=== PATIENT | female | born 1950 | race Two or more races ===

== ENCOUNTER 2024-10-22 15:27 | Emergency (ER) | payer MEDICARE, OTHER, SELFPAY ==
[2024-10-22 16:04] VITALS: BP 173/65; PULSE 64; RESP 18; TEMP 36.9; O2SAT 98
[2024-10-22 16:08] VITALS: PULSE 81; RESP 18; O2SAT 99; BMI 32.9
--- NOTE | 2024-10-22 16:16 | PD.EDFALL ---
ED Fall Injury RME/HPI General Chief Complaint: Fall Stated Complaint: FALL Time Seen by Provider: 10/22/24 16:34 Arrival date/time: 10/22/24 15:27 RME / HPI RME / HPI Narrative: DR. MUNSON MAIN ED EVALUATION: 73 year old female presents to the Emergency Department [facility] with complaint of bilateral knee pain, but left knee pain is worse, secondary to fall last night. Patient states she was walking from her truck to her home taking in the groceries and she slipped and fell on her knees. No feet pain and no hip pain. Related Data Home Medications ?Medication ?Instructions ?Recorded ?Confirmed ergocalciferol (vitamin D2) 1,250 1,250 mcg PO QWEEK 06/29/22 06/29/22 mcg (50,000 unit) capsule (Vitamin D2) metoprolol succinate 50 mg 50 mg PO BID 06/29/22 06/29/22 tablet,extended release 24 hr sertraline 100 mg tablet 100 mg PO HS 06/29/22 06/29/22 Previous Rx's ?Medication ?Instructions ?Recorded ibuprofen 600 mg tablet 600 mg PO TID PRN pain #30 tabs 06/29/22 ibuprofen 600 mg tablet 600 mg PO Q6H PRN pain #30 tabs 10/22/24 Allergies Allergy/AdvReac Type Severity Reaction Status Date / Time No Known Allergies Allergy Verified 02/18/24 19:43 Review of Systems Review of Systems Systems Reviewed: All systems reviewed, normal except as documented Narrative Review of Systems: GEN: No fever, no chills, no weight loss EYES: No discharge, no visual changes, no pain HEENT: No ear pain, no congestion, no sore throat PULM: No shortness of breath, no cough, no congestion CV: No chest pain, no dyspnea on exertion, no palpitations GI: No nausea, no vomiting, no diarrhea, no pain, no constipation : No frequency, no urgency and no dysuria MUSC/SKEL: + bilateral knee pain, but left knee pain is worse; no back pain SKIN: No rash PSYCH: No hallucinations, no depression HEME/LYMPH: No easy bleeding or bruising tendencies NEURO: No weakness, no headache Past Medical History Past Medical History CARDIAC: Positive Hypertension MUSCULOSKELETAL: Positive Arthritis PSYCHO/SOCIAL: Positive Depression and Anxiety Surgical History SURGICAL: Positive Hysterectomy Social History SMOKING STATUS: Never smoker SUBSTANCE USE: does not use ALCOHOL: Never ED Exam Narrative Physical exam: GENERAL APPEARANCE: alert and oriented x 4, well-developed, well-nourished VITALS: All vitals were reviewed and the pulse ox is 98% on room air, which is normal according to my interpretation. HEENT: Normocephalic, atraumatic; pupils equal, round, reactive to light; EOMI; mucous membranes pink, moist; oropharynx clear NECK: Supple LUNGS: CTABL; no wheezes, no rales, no rhonchi HEART: Regular rate, regular rhythm; normal S1, S2; no murmurs ABDOMEN: non distended; normal BS; soft, no tenderness, no guarding, no rebound; no masses, no organomegaly, no hernia BACK: no CVA tenderness EXTREMITIES: joint effusion of the left knee, but no erythema, some mild edema, no increased warmness NEUROLOGIC: awake; alert and oriented x4; cranial nerves II-XII grossly intact; no focal sensory or motor deficits PSYCHIATRIC: appropriate mood and affect SKIN: warm, dry, normal color; no rashes Course Quality Measures none Orders Category Date Time Status XR knee comp LT 4V Stat Exams 10/22/24 16:33 Completed HYDROcodone*/APAP 5/325 [[place] 5/325] Med 10/22/24 16:33 Discontinued 1 tab PO X1 ONE Vital Signs Vital signs: Vital Signs Temperature 98.5 F 10/22/24 16:04 Pulse Rate 64 10/22/24 16:04 Respiratory Rate 18 10/22/24 16:04 Blood Pressure 173/65 H 10/22/24 16:04 Pulse Oximetry (%) 98 10/22/24 16:04 Oxygen Delivery Method Room Air 10/22/24 16:04 Fall [facility] Narrative [facility] Narrative:: IDarshana am scribing for and in the presence of Dr. Munson. Patient data External records reviewed:: [facility] previous records (Reviewed last ED visit dated 02/18/24, discharged with the following: Injection site reaction) Clinical information provided by:: patient Social determinants that could affect healthcare access:: none Patient has the following chronic illnesses:: Hypertension, arthritis, and a hysterectomy How is presenting disease/condition affected by chronic disease/condition?: exacerbated by Evaluation data The following diagnostics were reviewed and interpreted by me:: radiology exam(s) Lab and/or radiology exams considered but not ordered:: none Interpretation Summary: Procedure(s): XR knee comp LT 4V Accession Number(s): [id number] cc: Felipe Salas MD; Yisel Munson MD~ EXAMINATION: XR knee comp LT 4V ORDERING PROVIDER: Yisel Munson MD HISTORY: fall TECHNIQUE: 4 radiographs of the knee were obtained. COMPARISON: 04/23/2022, left knee radiographs. FINDINGS: No acute fracture or dislocation. Moderate medial compartment, mild patellofemoral compartment degenerative changes. Chondrocalcinosis. No soft tissue swelling. Trace effusion. Osteopenia. IMPRESSION: Trace effusion without acute bony findings. Dictated By: Felipe Salas MD Medications / Prescriptions Medications or Prescriptions considered but not ordered:: none Medication administrations:: Medication Administration History Discontinued Medications Hydrocodone Bitart/Acetaminophen (Hydrocodone/Apap 5/325 Tablet) 1 tab PO X1 ONE Stop: 10/22/24 16:34 see above Consultations Consultation(s) initiated? (list below): No Diagnosis Fall Differential Diagnosis: other (Fall, Knee pain, knee fracture, knee contusion) Most likely diagnosis given after review of the tests above:: Fall Knee pain Joint effusion of knee Contusion of knee Admission Indicated Admission indicated?: not indicated Admission Request Was there a request for admission?: No Disposition Plan Disposition Plan: Discharge Discharge Attestation Discharge Attestation: The patient and all family members were given an opportunity to ask questions and understood the discharge instructions. Discharge instructions specifically effects, indications for sooner follow up or return to the emergency department, and the expected course of current diagnosis. Patient condition: Stable Discharge Plan Plan Patient Disposition: HOME (Self Care) Patient condition on transfer: Stable Prescriptions/Referrals Prescriptions/Med Rec: New ibuprofen 600 mg tablet 600 mg PO Q6H PRN (Reason: pain) Qty: 30 0RF No Action metoprolol succinate 50 mg Tablet Extended Release 24 Hr 50 mg PO BID sertraline 100 mg Tablet 100 mg PO HS ergocalciferol (vitamin D2) [Vitamin D2] 1,250 mcg (50,000 unit) Capsule 1,250 mcg PO QWEEK ibuprofen 600 mg tablet 600 mg PO TID PRN (Reason: pain) Qty: 30 0RF Referrals: Low Cabello MD [Primary Care Provider] - In 1 week Problem List Clinical Impression: Fall, Knee pain, Joint effusion of knee, Contusion of knee Patient/Caregiver Discharge Instructions Education Materials: CHRISTOPHE, ED ANA Wrap, ED Knee Effusion Print Language: Divehi Stand Alone Forms: Anai Award Info., Patient Portal Info Letter
--- NOTE | 2024-10-22 16:33 | XR_ITS ---
EXAMINATION: XR knee comp LT 4V ORDERING PROVIDER: Yisel Munson MD HISTORY: fall TECHNIQUE: 4 radiographs of the knee were obtained. COMPARISON: 04/23/2022, left knee radiographs. FINDINGS: No acute fracture or dislocation. Moderate medial compartment, mild patellofemoral compartment degenerative changes. Chondrocalcinosis. No soft tissue swelling. Trace effusion. Osteopenia. IMPRESSION: Trace effusion without acute bony findings.
[2024-10-22] MEDS: HYDROcodone/APAP 5/325 TABLET 1 TAB PO (17:58)
[2024-10-22 17:59] VITALS: BP 157/100; PULSE 85; RESP 18; TEMP 36.6; O2SAT 97
== END 2024-10-22 19:27 | disposition home or self-care (01) ==
PROVIDERS: Emergency Provider Emergency Medicine; PCP Internal Medicine
DX: S80.02XA Contusion of left knee, initial encounter (principal); W01.0XXA Fall on same level from slipping, tripping and stumbling without subsequent striking against object, initial encounter; Y93.01 Activity, walking, marching and hiking
CPT/HCPCS: 73564; 99283; A9270

== ENCOUNTER → 2024-11-26 | Outpatient (CLI) | payer MEDICARE, OTHER, SELFPAY ==
--- NOTE | 2024-11-26 12:30 | XR_ITS ---
Exam: MRI knee without contrast, left Date and time of exam: November 26, 2024 at 1111 hours INDICATIONS: Patient fell one month ago with injury to the knee, knee pain Technique: Multiple axial, coronal, and sagittal sections on the knee have been obtained. T2-Weighted sagittal, fat-suppressed images, TR 3,500, TE 62, T2 weighted coronal fat-saturated images, TR 3,500, TE 62 Proton density sagittal sections, TR 1800, TE 31. T-1 weighted coronal images, TR 524, TE 13.0 Findings: Medial meniscus anterior horn intact. Medial meniscus, body abnormal, small vertical tears. Posterior horn medial meniscus abnormal, large horizontal linear tear. Lateral meniscus anterior horn horizontal linear tear Lateral meniscus, body is intact Posterior horn lateral meniscus is intact Anterior cruciate ligament mild sprain Posterior cruciate ligament appears intact. Knee effusion is small. Quadriceps and patellar tendons appear intact. There is no evidence of tendinosis. Inflammatory change or fracture of Hoffa's fat pad is not seen. Medial patellar facet demonstrates severe thinning. Lateral patellar facet cartilage demonstrates severe thinning. Trochlear cartilage demonstrates severe thinning. Marrow signal abnormal, extensive marrow edema with comminuted fractures lateral tibial plateau with depression of the lateral tibial plateau at least 8 mm. Medial collateral ligament appears intact. No meniscocapsular separation is seen. Illiotibial band and fibular collateral ligament are intact. Biceps femoris tendons appear intact. Medial femoral condylar articular cartilage demonstrates severe thinning. Lateral femoral condylar articular cartilage demonstratessevere thinning. Tibial plateau cartilage demonstrates severe thinning. Impression: Acute comminuted fractures lateral tibial plateau with depression lateral tibial plateau Medial lateral meniscus tears Mild sprain anterior cruciate ligament
== END | disposition home or self-care (01) ==
LOC: SMRI 11:21
PROVIDERS: PCP Internal Medicine; Referring Provider Internal Medicine; Visit Provider Internal Medicine
DX: S82.142A Displaced bicondylar fracture of left tibia, initial encounter for closed fracture (principal); S83.282A Other tear of lateral meniscus, current injury, left knee, initial encounter; S83.512A Sprain of anterior cruciate ligament of left knee, initial encounter; W19.XXXA Unspecified fall, initial encounter
CPT/HCPCS: 73721

== ENCOUNTER 2025-01-07 08:26 | Outpatient (AMB) | payer MEDICARE, OTHER, SELFPAY ==
[2025-01-07 08:36] VITALS: BP 187/72; PULSE 60; RESP 18; TEMP 36.6; O2SAT 94; BMI 32.1
--- NOTE | 2025-01-07 08:36 | ORTHONT_ITS ---
Vital signs 01/07/25 08:36 Height 1.57 m Height Method Stated Weight 79.634 kg Weight Measurement Method Standing Scale BMI 32.1 BP 187/72 H Blood Pressure Source Automatic Cuff Blood Pressure Location Right Upper Arm Position Sitting Respiration 18 Pulse 60 Pulse Source Monitor Temp 97.8 F Temp Source Temporal Artery Scan Pulse Oximetry (%) 94 L Oxygen Delivery Method Room Air Med/Allergies Allergies & Medications Allergies No Known Allergies Allergy (Verified 01/07/25 08:39) Medication Reconciliation ibuprofen 600 mg tablet 600 mg PO TID PRN pain #30 tabs 06/29/22 [Rx Confirmed 01/07/25] metoprolol succinate 50 mg tablet,extended release 24 hr 50 mg PO BID 06/29/22 [History Confirmed 01/07/25] sertraline 100 mg tablet 100 mg PO HS 06/29/22 [History Confirmed 01/07/25] ibuprofen 600 mg tablet 600 mg PO Q6H PRN pain #30 tabs 10/22/24 [Rx Confirmed 01/07/25] Exam Exam Patient is in no acute distress and is cooperative with the examination today. Breathing is nonlabored. Patient has a normal mood and affect. The patient has a gait that is nonantalgic Bilateral extremities were evaluated and demonstrates sensation intact to light touch. Palpable pedal pulses are present. No significant edema is present. Bilateral hips were examined. The patient has no pain with log roll of the hips. Internal rotation to 30 degrees and external rotation to 30 degrees is painless. Negative FADIR. Right knee was examined today. The right knee is in reasonable alignment. Range of motion from 0-120 degrees. Knee is stable to varus and valgus as well as AP translation with <5mm. Patient has a negative McMurrays. There is no pain with patellofemoral compression and no crepitus noted. The knee is nontender to palpation. Left knee was examined today. The left knee is in neutral alignment. Range of motion from 0-120 degrees. Knee is stable to varus and valgus as well as AP translation with <5mm. Patient has a negative McMurrays. There is no pain with patellofemoral compression and no crepitus noted. The knee is nontender to palpation diffusely. Assessment and Plan Problem List (1) Closed nondisplaced fracture of left tibial plateau: Status: Acute Plan: Patient is a 74-year-old female with a nondisplaced tibial plateau fracture. It is likely healed at this point as she has no pain. I would like to get weightbearing x-rays to see what it looks like now. Is been over 2-1/2 months. She also has left wrist pain and had a recent fall 1 week ago. I would like to get x-rays to better evaluate the wrist We will see her in approximately 1 to 2 weeks (2) Left wrist pain: Status: Acute Advanced Care Planning Discussion Advance care planning discussed with:: patient Office Procedures GNS Level of Care Nursing/Assessment Patient Status: Established Patient Nursing Assessment/Reassesment: Medication Reconciliation, Update PMH in EMR and Vital Signs Coordination of Care: Complex Care and Chronic Disease 1-5, Education Complex Pt/Fam, Consent,records obtained, informed consent, Lab and Imaging orders, Results/Orders obtained and Staff clarify orders Established Patient Charge Established Patient Point Assignment: 110 Established Patient Point Charge: EP Level 3 (80-115) MA Intake Visit Data Collection New Patient or Established: Established Patient (seen at [facility] within 3 years) Reason for Visit:: LEFT KNEE PAIN Seen by Clinical Staff ONLY (RN/MA): No Verbal consent obtained for Telemed visit?: No Metallurgical Lab Technician Required: No PCP or OBGYN visit in last 3 months: Yes Hx Now: No Do You Feel Safe at Home: Yes Authorities Contacted: N/A Questionairres Past Medical History Past Medical History Have you ever been diagnosed with any of the following: Cardiology Problems Congestive Heart Failure: No Hypertension: Yes Respiratory Problems Chronic Obstructive Pulmonary Disease (COPD): No Genital/Urinary Problems Renal Disease: No Musculoskeletal Problems Arthritis: Yes Endocrine Problems Diabetes Mellitus Type 1: No Diabetes Mellitus Type 2: No Psychologic Problems Depression: Yes Anxiety: Yes Surgical History Hysterectomy: Yes Subjective Visit Visit for: new patient and knee Immunization / Flu Flu Vaccine in the Last 12 Months: No Flu Vaccine Exclusion Criteria: Refused by Patient History of Present Illness Chief complaint: LEFT KNEE PAIN Date of injury / onset of symptoms: FELL ON NOVEMBER Sara is a pleasant 74-year-old female with a left knee pain. She had a fall in October and was found to have a nondisplaced tibial plateau fracture which was confirmed on MRI. The original x-rays did not show anything. She reports the pain has significantly gotten better. She is able to weight-bear. Personal History Occupation: RETIRED Red flag PMH: BMI BMI Counceling provided: Yes Pain Pain level (0-10): 7 Pain location: anterior Pain quality: sharp, dull and aching Pain timing: increases with activity Associated signs & symptoms: none Ambulatory data Ambulatory device: none Treatments Improvement with previous injections: No Improvement with PT: No Improvement with NSAIDS: yes (IBUPROFEN) Review of Systems Review of Systems: All systems negative unless otherwise noted in HPI.
--- NOTE | 2025-01-07 08:57 | XR_ITS ---
Examination: Bilateral AP knees single view PA lateral axial left knee 3 views TECHNIQUE: Bilateral AP knees standing single view PA standing left knee, lateral standing left knee, axial left knee 3 views total 4 views Date and time: January 07, 2025 0922 hours Comparison October 22, 2024 INDICATIONS: Left knee pain after falling 2 months ago. FINDINGS: Moderate osteopenia Moderate narrowing medial joint space left knee Mild to moderate osteoarthritis patellofemoral joint left knee No fracture involving right or left knee Moderate osteopenia Mild narrowing medial joint space right knee IMPRESSION: No fractures Moderate narrowing medial joint space left knee Mild to moderate osteoarthritis patellofemoral joint left knee
== END 2025-01-07 09:00 | disposition home or self-care (01) ==
LOC: HODSRG 08:26
PROVIDERS: PCP Internal Medicine; Referring Provider Internal Medicine; Supervising Provider Orthopaedic Surgery Adult Reconstructive Orthopaedic Surgery; Visit Provider Orthopaedic Surgery Adult Reconstructive Orthopaedic Surgery
DX: S82.142A Displaced bicondylar fracture of left tibia, initial encounter for closed fracture (principal); X58.XXXA Exposure to other specified factors, initial encounter
CPT/HCPCS: 73564; 99213; G0463

== ENCOUNTER 2025-01-19 14:19 | Outpatient (AMB) | payer MEDICARE, OTHER, SELFPAY ==
[2025-01-19 14:37] VITALS: BP 158/62; PULSE 63; RESP 17; TEMP 36.2; O2SAT 95; BMI 31.8
--- NOTE | 2025-01-19 14:37 | PD.ORTHCLVIS ---
Vital signs 01/19/25 14:37 Height 1.57 m Height Method Stated Weight 79.038 kg Weight Measurement Method Standing Scale BMI 31.8 BP 158/62 H Blood Pressure Source Automatic Cuff Blood Pressure Location Right Upper Arm Position Sitting Respiration 17 Pulse 63 Pulse Source Monitor Temp 97.1 F Temp Source Temporal Artery Scan Pulse Oximetry (%) 95 Oxygen Delivery Method Room Air Med/Allergies Allergies & Medications Allergies No Known Allergies Allergy (Verified 01/19/25 14:39) Medication Reconciliation ibuprofen 600 mg tablet 600 mg PO TID PRN pain #30 tabs 06/29/22 [Rx Confirmed 01/19/25] metoprolol succinate 50 mg tablet,extended release 24 hr 50 mg PO BID 06/29/22 [History Confirmed 01/19/25] sertraline 100 mg tablet 100 mg PO HS 06/29/22 [History Confirmed 01/19/25] ibuprofen 600 mg tablet 600 mg PO Q6H PRN pain #30 tabs 10/22/24 [Rx Confirmed 01/19/25] Exam Exam Patient is in no acute distress and is cooperative with the examination today. Breathing is nonlabored. Patient has a normal mood and affect. The patient has a gait that is nonantalgic Bilateral extremities were evaluated and demonstrates sensation intact to light touch. Palpable pedal pulses are present. No significant edema is present. Bilateral hips were examined. The patient has no pain with log roll of the hips. Internal rotation to 30 degrees and external rotation to 30 degrees is painless. Negative FADIR. Right knee was examined today. The right knee is in reasonable alignment. Range of motion from 0-120 degrees. Knee is stable to varus and valgus as well as AP translation with <5mm. Patient has a negative McMurrays. There is no pain with patellofemoral compression and no crepitus noted. The knee is nontender to palpation. Left knee was examined today. The left knee is in neutral alignment. Range of motion from 0-120 degrees. Knee is stable to varus and valgus as well as AP translation with <5mm. Patient has a negative McMurrays. There is no pain with patellofemoral compression and no crepitus noted. The knee is nontender to palpation diffusely. Xrays demosntrate no significant oa or depression of the tibial plateau fracture. It looks well healed Assessment and Plan Problem List (1) Closed nondisplaced fracture of left tibial plateau: Status: Acute Plan: Patient is a 74-year-old female with a nondisplaced tibial plateau fracture. It is likely healed at this point as she has no pain. I would like to get weightbearing x-rays to see what it looks like now. It has been 3 months. She also has left wrist pain and had a recent fall 1 week ago. I would like to get x-rays to better evaluate the wrist but it was denied She is doing well and will need xrays and followup (2) Left wrist pain: Status: Acute Advanced Care Planning Discussion Advance care planning discussed with:: patient Office Procedures GNS Level of Care Nursing/Assessment Patient Status: Established Patient Nursing Assessment/Reassesment: Medication Reconciliation, Update PMH in EMR and Vital Signs Coordination of Care: Complex Care and Chronic Disease 1-5, Education Complex Pt/Fam, Consent,records obtained, informed consent, Results/Orders obtained and Staff clarify orders Established Patient Charge Established Patient Point Assignment: 95 Established Patient Point Charge: EP Level 3 (80-115) MA Intake Visit Data Collection New Patient or Established: Established Patient (seen at [facility] within 3 years) Reason for Visit:: FU XRAY RESULT LT KNEE/HAND Seen by Clinical Staff ONLY (RN/MA): No Swiss Type Screw Machine Operator Required: No PCP or OBGYN visit in last 3 months: Yes Hx Now: No Do You Feel Safe at Home: Yes Authorities Contacted: N/A Questionairres Past Medical History Past Medical History Have you ever been diagnosed with any of the following: Cardiology Problems Congestive Heart Failure: No Hypertension: Yes Respiratory Problems Chronic Obstructive Pulmonary Disease (COPD): No Genital/Urinary Problems Renal Disease: No Musculoskeletal Problems Arthritis: Yes Endocrine Problems Diabetes Mellitus Type 1: No Diabetes Mellitus Type 2: No Psychologic Problems Depression: Yes Anxiety: Yes Surgical History Hysterectomy: Yes Subjective Visit Visit for: follow up visit and knee (LEFT KNEE) Immunization / Flu Flu Vaccine in the Last 12 Months: No Flu Vaccine Exclusion Criteria: Refused by Patient History of Present Illness Chief complaint: LEFT KNEE PAIN Date of injury / onset of symptoms: FELL ON NOVEMBER Sara is a pleasant 74-year-old female with a left knee pain. She had a fall in October and was found to have a nondisplaced tibial plateau fracture which was confirmed on MRI. She reports she has no pain at this time. Personal History Occupation: RETIRED Red flag PMH: none BMI Counceling provided: Yes Pain Pain level (0-10): 10 Pain duration: 3 WEEKS Pain location: anterior Pain quality: sharp and other (specify) (SWELLING ) Pain timing: night and increases with activity Associated signs & symptoms: none Ambulatory data Ambulatory device: none Walking distance (minutes): 1 Treatments Number of previous injections: 0 Improvement with previous injections: No Number of Physical Therapy sessions: 0 Improvement with PT: No Improvement with NSAIDS: n/a Review of Systems Review of Systems: All systems negative unless otherwise noted in HPI.
== END 2025-01-19 14:46 | disposition home or self-care (01) ==
LOC: HODSRG 14:19
PROVIDERS: PCP Internal Medicine; Referring Provider Internal Medicine; Supervising Provider Orthopaedic Surgery Adult Reconstructive Orthopaedic Surgery; Visit Provider Orthopaedic Surgery Adult Reconstructive Orthopaedic Surgery
DX: S82.145D Nondisplaced bicondylar fracture of left tibia, subsequent encounter for closed fracture with routine healing (principal); W19.XXXD Unspecified fall, subsequent encounter; M25.532 Pain in left wrist; I10 Essential (primary) hypertension
CPT/HCPCS: 99213; G0463

== ENCOUNTER → 2025-01-21 | Outpatient (CLI) | payer MEDICARE, OTHER, SELFPAY ==
--- NOTE | 2025-01-21 14:58 | XR_ITS ---
Examination: Wrist, left 3 views Technique: Wrist AP, oblique, lateral 3 views Date and time of exam: January 21, 2025 1513 hours INDICATIONS: Patient fell 3 weeks ago with injury to the wrist, wrist pain. FINDINGS: Suspicious for subtle nondisplaced fractures radial styloid Carpal bones intact No dislocation IMPRESSION: Suspicious for nondisplaced fractures distal radius through the radial styloid
== END | disposition home or self-care (01) ==
PROVIDERS: PCP Internal Medicine; Referring Provider Internal Medicine; Visit Provider Internal Medicine
DX: M25.532 Pain in left wrist (principal)
CPT/HCPCS: 73110

== ENCOUNTER → 2025-03-04 | Outpatient (CLI) | payer MEDICARE, BC, OTHER, SELFPAY ==
--- NOTE | 2025-03-04 14:02 | XR_ITS ---
EXAMINATION: Cervical spine, 5 views Technique: Cervical spine AP, AP odontoid, lateral, bilateral obliques, 5 views Exam date and time: March 04, 2025 1405 hours INDICATIONS: Neck pain 5 weeks radiating to the left arm FINDINGS: Adequate alignment cervical Days. No cervical fracture. Advanced degenerative disc disease C4-C5, moderate degenerative disc disease C5-C6 Moderate bilateral neural foraminal stenosis at these levels Impression: Advanced degenerative disc disease C4-C5 Moderate degenerative disc disease C5-C6 Advanced bilateral neural foraminal stenosis at these levels
== END | disposition home or self-care (01) ==
LOC: SDIM 13:39
PROVIDERS: PCP Internal Medicine; Referring Provider Orthopaedic Surgery; Visit Provider Orthopaedic Surgery
DX: M50.321 Other cervical disc degeneration at C4-C5 level (principal); M48.02 Spinal stenosis, cervical region
CPT/HCPCS: 72050

== ENCOUNTER → 2025-03-15 | Outpatient (CLI) | payer MEDICARE, OTHER, SELFPAY ==
--- NOTE | 2025-03-15 17:00 | XR_ITS ---
Examination: MRI left wrist, without contrast Date and time of exam: March 15, 2025, 1804 hours Patient fell December 2024 with persistent wrist pain Technique: Multiple axial sagittal and coronal images of the left wrist have been obtained with the Siemens high-resolution 1.5 Sandra MRI scanner. Images obtained include T2-weighted fat-suppressed sagittal sections, TR 3500, TE 46, T2 weighted coronal fat suppressed images, TR 3050, TE 84, T2-weighted transverse fat suppressed images, TR 3260, TE 63, proton density transverse images, TR 4720 TE 46, and T1 weighted coronal images, TR 560, TE 13. Findings: Without significant displacement Coronal image 9 suspicious for tear in the triangular fibrocartilage Marrow edema is prominent in the navicular and mild in the lunate The flexor tendons are intact with normal-appearing median nerve There is mild diffuse tendinitis of the extensor tendons The ulna is intact IMPRESSION: Comminuted intra-articular fracture distal radial metaphysis without significant displacement of fracture fragments Suspicious for tear in the triangular fibrocartilage Prominent marrow edema in the navicular although fracture lines are not visualized
== END | disposition home or self-care (01) ==
PROVIDERS: PCP Internal Medicine; Referring Provider Orthopaedic Surgery; Visit Provider Orthopaedic Surgery
DX: S52.532A Colles' fracture of left radius, initial encounter for closed fracture (principal); W19.XXXA Unspecified fall, initial encounter; R93.7 Abnormal findings on diagnostic imaging of other parts of musculoskeletal system
CPT/HCPCS: 73221